=== PATIENT | male | born 1945 | race Caucasian/White ===

== ENCOUNTER 2019-06-01 19:42 | Inpatient (IN) | payer OTHER ==
[~2019-06-01] VITALS: Ht 172.7 cm; Wt 65.9 kg
[2019-06-01 20:06] VITALS: BP 166/60
--- NOTE | 2019-06-01 21:00 | PDOC ---
Exam Note: Gennaro Note: Please also refer to the separate dictated note~for this date of service dictated separately. Discussed the patient with Nursing staff reviewed the chart.~Reviewed interim history and current functioning. Reviewed vital signs,~Labs/ Radiology~and current medications noted below. Continue current treatment with the changes noted in the dictated addendum note Assessment: Vital Signs/I&O: Vital Signs Date Time Temp Pulse Resp B/P (MAP) Pulse Ox O2 Delivery O2 Flow Rate FiO2 06/01/19 20:06 98.4 92 18 166/60 (95) 98 Current Medications: I have reviewed the current psychotropics carefully including drug interactions. Risk benefit ratio favors no change other than as noted in my dictated progress note. EH ISLAS MD Jun 01, 2019 21:00
[2019-06-01] MEDS ORDERED: METHYL SALICYLATE/MENTHOL TOPICAL OINTMENT 57GM TUBE. TP PRN (21:15)
[2019-06-01] MEDS ORDERED: MAG HYDROX/AL HYDROX/SIMETH 30 ML ORAL.SUSP PO PRN (21:15)
[2019-06-01] MEDS ORDERED: ACETAMINOPHEN 325 MG TABLET PO PRN (21:15)
[2019-06-01] MEDS ORDERED: MAGNESIUM HYDROXIDE 2,400 MG/30 ML ORAL.SUSP. PO PRN (21:15)
[2019-06-01 21:53] LABS: BASO # 0.1 x10^3/uL (0.0-0.2); BASO % 1 % (0-3); EOS # 0.4 x10^3/uL (0.0-0.7); EOS % 4 % (0-3); HEMATOCRIT 40.2 % (39.0-53.0); HEMOGLOBIN 13.5 g/dL (13.0-17.5); LYMPH # 3.1 x10^3/uL (1.0-4.8); LYMPH % 31 % (24-48); MEAN CORPUSCULAR HEMOGLOBIN 31 pg (25-35); MEAN CORPUSCULAR HGB CONC 34 g/dL (31-37); MEAN CORPUSCULAR VOLUME 92 fL (79-100); MONO % 10 % (0-9); NEUT # 5.5 x10^3uL (1.8-7.7); NEUT % 55 % (31-73); PLATELET COUNT 299 x10^3/uL (140-400); RED BLOOD COUNT 4.38 x10^6/uL (4.30-5.70); RED CELL DISTRIBUTION WIDTH 14.2 % (11.5-14.5)
[2019-06-01 22:08] LABS: ALBUMIN 2.9 g/dL (3.4-5.0); ALBUMIN/GLOBULIN RATIO 0.8 (1.0-1.7); ALK PHOS 68 U/L (46-116); ALT (SGPT) 15 U/L (16-63); ANION GAP 9 (6-14); AST (SGOT) 9 U/L (15-37); BLOOD UREA NITROGEN 9 mg/dL (8-26); BUN/CREATININE RATIO 11 (6-20); CALCIUM 9.2 mg/dL (8.5-10.1); CARBON DIOXIDE 27 mmol/L (21-32); CHLORIDE 102 mmol/L (98-107); CREATININE 0.8 mg/dL (0.7-1.3); GFR 95.3; GLUCOSE 132 mg/dL (70-99); POTASSIUM 4.1 mmol/L (3.5-5.1); SODIUM 138 mmol/L (136-145); TOTAL BILIRUBIN 0.2 mg/dL (0.2-1.0); TOTAL PROTEIN 6.7 g/dL (6.4-8.2)
[2019-06-01 22:12] LABS: VAL ACID 54 mcg/mL (50-100)
[2019-06-01] MEDS ORDERED: MIDO10TA PO (22:23)
[2019-06-01] MEDS ORDERED: ASPI-630 PO (22:23)
[2019-06-01] MEDS ORDERED: OMEP-229 PO (22:23)
[2019-06-01] MEDS ORDERED: ATOR20TA58 PO (22:23)
[2019-06-01] MEDS ORDERED: CITA10TA4 PO (22:23)
[2019-06-01] MEDS ORDERED: THIA100T57 PO (22:23)
[2019-06-01] MEDS ORDERED: ERGO500027 PO (22:23)
[2019-06-01] MEDS ORDERED: FOLI0.8C PO (22:23)
[2019-06-01] MEDS ORDERED: HYDR-2763 PO (22:23)
[2019-06-01] MEDS ORDERED: ACET500T68 PO (22:23)
[2019-06-01] MEDS ORDERED: DIVA500T17 PO (22:23)
[2019-06-01] MEDS ORDERED: CYAN100031 PO (22:23)
[2019-06-01] MEDS ORDERED: BENZ9GEL3 MM (22:23)
[2019-06-01] MEDS ORDERED: NAPR220C62 PO (22:23)
[2019-06-01] MEDS ORDERED: HYDROcodone/APAP 7.5/325MG 1 TAB TABLET PO PRN (22:30)
[2019-06-01] MEDS ORDERED: PANTOPRAZOLE 40 MG TABLET. PO PRN (22:30)
[2019-06-01] MEDS ORDERED: NAPROXEN 250 MG TABLET PO PRN (22:45)
[2019-06-01] MEDS ORDERED: BENZOCAINE 20% ORAL GEL 11.9GM TUBE. TP PRN (22:45)
--- NOTE | 2019-06-02 05:44 | EKG ---
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
[2019-06-02 05:49] VITALS: BP 123/80
[2019-06-02] MEDS: MIDODRINE 5 MG TABLET PO SCH ×3 (07:00→18:00)
[2019-06-02] MEDS: FOLIC ACID 1 MG TABLET PO SCH (09:40)
[2019-06-02] MEDS: ACETAMINOPHEN 500 MG TABLET PO SCH ×3 (09:40→21:00)
[2019-06-02] MEDS: CYANOCOBALAMIN (VITAMIN B-12) 1,000 MCG TABLET. PO SCH (09:40)
[2019-06-02] MEDS: THIAMINE 100 MG TABLET. PO SCH (09:40)
[2019-06-02] MEDS: CITALOPRAM 10 MG TABLET. PO SCH (09:40)
[2019-06-02] MEDS: ASPIRIN 81 MG TAB.CHEW PO SCH (09:40)
[2019-06-02 14:31] LABS: THYROID STIM HORMONE (TSH) 2.147 uIU/mL (0.358-3.740)
[2019-06-02 15:52] VITALS: BP 147/98
[2019-06-02 18:17] LABS: BACTERIA,URINE FEW /HPF (0-FEW); BILIRUBIN,URINE NEG (NEG); CLARITY,URINE CLOUDY; COLOR,URINE AMBER; GLUCOSE,URINE NEG (NEG); NITRITE,URINE NEG (NEG); SQUAMOUS EPITHELIAL CELL,UR OCC /LPF; UROBILINOGEN,URINE 0.2 mg/dL (0.2 mg/dL); WBC,URINE TNTC /HPF (0-4)
--- NOTE | 2019-06-02 20:34 | CONS ---
DATE OF CONSULTATION: REASON FOR CONSULTATION: Medical management. 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 PAST MEDICAL HISTORY: Significant for hypertension, cerebrovascular accident with left-sided hemiplegia, COPD, gastroesophageal reflux disease, encephalopathy, traumatic brain injury and posttraumatic stress disorder. PAST SURGICAL HISTORY: Significant for PCI with stent deployment, coronary artery bypass graft surgery, exploratory laparotomy and partial resection of the colon for colon cancer. ALLERGIES: HE IS ALLERGIC TO CODEINE, MEPERIDINE, MORPHINE, NICOTINE, OXYCODONE AND PHENOBARBITAL. MEDICATIONS: He is currently on following medications: He is on midodrine 10 mg 3 times a day for chronic postural hypertension, atorvastatin calcium 20 mg at bedtime, aspirin 81 mg once a day, naproxen sodium 220 mg every 12 hours, hydrocodone/APAP 7.5/325 one tablet every 4 hours, Tylenol 500 mg 3 times a day, divalproex sodium 1000 mg at bedtime. He is also on citalopram hydrobromide 10 mg daily, benzocaine oral analgesics 9 grams every 8 hours as needed, cyanocobalamin 1000 mcg p.o. daily, folic acid 800 mcg once a day, thiamine 100 mg once a day and ergocalciferol for vitamin D2 50,000 International Units once a week. FAMILY HISTORY: Unremarkable. SOCIAL HISTORY: He lives alone, has 1 son who lives in [place]. He continued to smoke and drink alcohol. He has a caregiver and lives in his own home, although recently has [facility]. REVIEW OF SYSTEMS: As per history of present illness. PHYSICAL EXAMINATION GENERAL: When I examined him, he was sitting on the edge of the bed comfortably, in no apparent distress. He was pale, but no jaundice, cyanosis or thyromegaly. No jugular venous distention. No limb edema. VITAL SIGNS: His heart rate was 77. His blood pressure was 123/80, temperature was 97.7, respiratory rate was 18 and oxygen saturation was 97% on room air. HEAD, EYES, EARS, NOSE AND THROAT: Showed normocephalic, atraumatic. NECK: Supple. HEART: Normal first and second heart sounds. No gallop or murmur. CHEST: Clear to auscultation. No crepitation or rhonchi. ABDOMEN: Scaphoid, soft, nontender. NEUROLOGIC: He was awake, alert, responding appropriately. All cranial nerves are intact. He has left-sided hemiparesis. He is mostly bed bound, wheelchair bound. LABORATORY DATA: His lab work on admission showed a serum sodium 138, potassium 4.1, chloride 102, bicarbonate 27, anion gap of 9, BUN 9, creatinine 0.8, estimated GFR was 95 mL per minute, his glucose 132, calcium was 9.2, magnesium 2. Serum iron was 52, TIBC was 280, and iron saturation was 19. His total bilirubin, AST, ALT, alkaline phosphatase were normal. Total protein was 6.7, albumin was 2.9. Serum triglyceride was 104, total cholesterol 165, LDL was 113, VLDL was 20, HDL cholesterol 32 and the ratio was 5. His TSH was normal at 2.147. His toxic screen showed his valproic acid was 54 mcg/mL, which is well within therapeutic range. IMPRESSION: In summary, this is a 73-year-old male patient, a resident at [facility], who was admitted on account of refusing medications. He is increasingly delusional, agitated, intrusive, all this in a background of posttraumatic stress disorder, major depressive disorder, alcohol-induced dementia with depression and behavioral disturbances. Medically, the patient has right middle cerebral artery territory infarct with left side hemiplegia, hypertension, chronic obstructive pulmonary disease, gastroesophageal reflux disease, traumatic brain injury. So far, he has also marked postural hypotension for which he is on midodrine and he has multiple falls because of that. However, all his vital signs seem to be stable and all his lab work are within normal range. I will definitely follow all his lab works that are still pending at the time of this dictation to make any necessary recommendation. Thank you, Dr. Cárdenas, for allowing me to participate in the care of this patient. ALBERTO HERNANDEZ MD DR: BENJIE/alessandra JOB#: [id number] / [id number]
--- NOTE | 2019-06-02 20:45 | PDOC ---
Exam Note: Gennaro Note: Please also refer to the separate dictated note~for this date of service dictated separately.~Patient seen individually. Discussed the patient with Nursing staff reviewed the chart.~Reviewed interim history and current functioning. Reviewed vital signs,~Labs/ Radiology~and current medications noted below. Continue current treatment with the changes noted in the dictated addendum note Assessment: Vital Signs/I&O: Vital Signs Date Time Temp Pulse Resp B/P (MAP) Pulse Ox O2 Delivery O2 Flow Rate FiO2 06/02/19 18:00 84 147/98 06/02/19 15:52 97.9 16 99 I & O 06/01/19 06/01/19 06/02/19 15:00 23:00 07:00 Intake Total 240 ml Balance 240 ml Labs: Laboratory Tests Test 06/01/19 21:10 06/01/19 21:45 06/02/19 17:31 White Blood Count 10.0 x10^3/uL (4.0-11.0) Red Blood Count 4.38 x10^6/uL (4.30-5.70) Hemoglobin 13.5 g/dL (13.0-17.5) Hematocrit 40.2 % (39.0-53.0) Mean Corpuscular Volume 92 fL (79-100) Mean Corpuscular Hemoglobin 31 pg (25-35) Mean Corpuscular Hemoglobin Concent 34 g/dL (31-37) Red Cell Distribution Width 14.2 % (11.5-14.5) Platelet Count 299 x10^3/uL (140-400) Neutrophils (%) (Auto) 55 % (31-73) Lymphocytes (%) (Auto) 31 % (24-48) Monocytes (%) (Auto) 10 % (0-9) H Eosinophils (%) (Auto) 4 % (0-3) H Basophils (%) (Auto) 1 % (0-3) Neutrophils # (Auto) 5.5 x10^3uL (1.8-7.7) Lymphocytes # (Auto) 3.1 x10^3/uL (1.0-4.8) Monocytes # (Auto) 1.0 x10^3/uL (0.0-1.1) Eosinophils # (Auto) 0.4 x10^3/uL (0.0-0.7) Basophils # (Auto) 0.1 x10^3/uL (0.0-0.2) Sodium Level 138 mmol/L (136-145) Potassium Level 4.1 mmol/L (3.5-5.1) Chloride Level 102 mmol/L (98-107) Carbon Dioxide Level 27 mmol/L (21-32) Anion Gap 9 (6-14) Blood Urea Nitrogen 9 mg/dL (8-26) Creatinine 0.8 mg/dL (0.7-1.3) Estimated GFR (Cockcroft-Gault) 95.3 BUN/Creatinine Ratio 11 (6-20) Glucose Level 132 mg/dL (70-99) H Calcium Level 9.2 mg/dL (8.5-10.1) Magnesium Level 2.0 mg/dL (1.8-2.4) Total Bilirubin 0.2 mg/dL (0.2-1.0) Aspartate Amino Transferase (AST) 9 U/L (15-37) L Alanine Aminotransferase (ALT) 15 U/L (16-63) L Alkaline Phosphatase 68 U/L (46-116) Total Protein 6.7 g/dL (6.4-8.2) Albumin 2.9 g/dL (3.4-5.0) L Albumin/Globulin Ratio 0.8 (1.0-1.7) L Valproic Acid Level 54 mcg/mL (50-100) Valproic Acid Last Dose Date 06/01/19 Valproic Acid Last Dose Time 0900 Iron Level 52 ug/dL (65-175) L Total Iron Binding Capacity 280 ug/dL (250-450) Iron Saturation 19 % (15-34) Triglycerides Level 104 mg/dL (0-150) Cholesterol Level 165 mg/dL (0-200) LDL Cholesterol, Calculated 113 mg/dL (0-100) H VLDL Cholesterol, Calculated 20 mg/dL (0-40) Non-HDL Cholesterol Calculated 133 mg/dL (0-129) H HDL Cholesterol 32 mg/dL (40-60) L Cholesterol/HDL Ratio 5.0 Vitamin B12 Level 787 pg/mL (247-911) 25-Hydroxy Vitamin D Total 39.5 ng/mL (30-100) Thyroid Stimulating Hormone (TSH) 2.147 uIU/mL (0.358-3.740) Treponema pallidum Antibody Nonreactive (Nonreactive) Urine Collection Type Unknown Urine Color Kami Urine Clarity Cloudy Urine pH 7.0 Urine Specific [place] 1.020 Urine Protein Neg (NEG-TRACE) Urine Glucose (UA) Neg mg/dL (NEG) Urine Ketones (Stick) Neg mg/dL (NEG) Urine Blood Trace (NEG) Urine Nitrite Neg (NEG) Urine Bilirubin Neg (NEG) Urine Urobilinogen Dipstick 0.2 mg/dL (0.2 mg/dL) Urine Leukocyte Esterase Mod (NEG) Urine RBC 1-2 /HPF (0-2) Urine WBC Tntc /HPF (0-4) Urine Squamous Epithelial Cells Occ /LPF Urine Bacteria Few /HPF (0-FEW) Current Medications: I have reviewed the current psychotropics carefully including drug interactions. Risk benefit ratio favors no change other than as noted in my dictated progress note. Diagnosis: Problems: (1) Anxiety disorder (2) Alcohol dependence (3) Bipolar affective, mixed, sev w/ psych (4) Mild cognitive impairment (5) Impulse control disorder EH ISLAS MD Jun 02, 2019 20:45
[2019-06-02] MEDS: DIVALPROEX ER 500 MG TAB.ER.24H PO SCH (20:58)
[2019-06-02] MEDS: ATORVASTATIN CALCIUM 20 MG TABLET PO SCH (21:00)
[2019-06-02 23:07] LABS: THYROXINE 6.2 ug/dL (4.5-12.0)
[2019-06-03] MEDS: MIDODRINE 5 MG TABLET PO SCH ×3 (06:02→18:00)
[2019-06-03 06:12] VITALS: BP 116/80
[2019-06-03] MEDS: FOLIC ACID 1 MG TABLET PO SCH (09:00)
[2019-06-03] MEDS: ACETAMINOPHEN 500 MG TABLET PO SCH ×3 (09:00→20:38)
[2019-06-03] MEDS: ASPIRIN 81 MG TAB.CHEW PO SCH (09:00)
[2019-06-03] MEDS: THIAMINE 100 MG TABLET. PO SCH (09:00)
[2019-06-03] MEDS: CYANOCOBALAMIN (VITAMIN B-12) 1,000 MCG TABLET. PO SCH (09:00)
[2019-06-03] MEDS: CITALOPRAM 10 MG TABLET. PO SCH (09:00)
--- NOTE | 2019-06-03 13:47 | HP ---
ADMIT DATE: 06/02/2019 PSYCHIATRIC ADMISSION HISTORY/EVALUATION This is a late entry, date of service 06/02/2019, and covers the elements not covered in my initial note of 06/02/2019. Date of admission for the patient was 06/01/2019. IDENTIFYING DATA: The patient is a 73-year-old male referred to us from the [facility] by Dr. Juan Francisco Vazquez, his primary care physician on account of refusing medications, increased paranoia, agitation, and being intrusive. The patient reportedly was banging on doors and windows at the nursing facility and convinced that he had to leave the facility to go home. He had failed outpatient psychiatric intervention at the facility and a prior inpatient psychiatric stabilization at the [facility]. He reportedly has a prior diagnosis of PTSD and encephalopathy in addition to alcohol-induced dementia, but the patient totally denies any history of alcohol abuse himself. Behaviors have been dangerous and unmanageable at the facility, resulting in this referral. CHIEF COMPLAINT: "I just wanted to change my power of insurance attorney. I need to go home. I was [place]. I was in [place]. [employer] gave me this [place] cap." HISTORY OF PRESENT ILLNESS: The patient reportedly has a history of mood swings with periods of elation and racing thoughts alternating with the depression and anxiety. Additionally, he has symptoms of PTSD, being hyperalert, over-reactive to stimuli, and having marked mood swings. He is also noted to have an extensive past history of alcohol abuse, which he minimizes and denies. In his records, it is also documented that he has a major neurocognitive disorder secondary to traumatic brain injury and alcohol, all of which he again denies. This admission was facilitated by the [facility]. PAST PSYCHIATRIC HISTORY: As above. PAST MEDICAL HISTORY: Positive for hypertension, status post CVA, COPD, GERD, heart disease, TBI, and PTSD. CODE STATUS: DNR. ALLERGIES: CODEINE, MORPHINE, MEPERIDINE, OXYCODONE, and PHENOBARBITAL. DIET: Regular. ACCU-CHEKS: None. AMBULATES: Wheelchair, though he can transfer. UA is awaited. CURRENT PSYCHOTROPICS: Celexa 10 mg a day, Depakote ER 500 mg daily, valproic acid level on 06/02/2019 is 54. FAMILY HISTORY: Noncontributory. SOCIAL HISTORY: No physical, sexual, or elder abuse history is noted. Not known to be a perpetrator. REACTION TO HOSPITALIZATION: The patient reluctantly is accepting of this. ASSETS: [facility] and by his power of insurance attorney, who are Camilo and Mary. MENTAL STATUS EXAMINATION: The patient was seen individually evening of 06/02/2019 in his room extensively. He is oriented to place and situation and knew he was admitted the day before. He is quite animated, hyperverbal at times, and somewhat paranoid, but denied suicidal or homicidal ideation. Attention span is short. Language function intact. He was able to do two steps on serial 7's and knew that the current president was president Khloe. He does have some short-term memory deficits. IMPRESSION: Bipolar disorder, mixed with psychotic features, anxiety disorder, unspecified, mild cognitive impairment versus major neurocognitive disorder, multifactorial, vascular, secondary to alcohol with the delusion, depression, and behavioral disturbance. Rest unchanged as above. PLAN: Admit to geropsychiatry unit at [facility]. I will see the patient daily individually from a psychiatric standpoint. Medical followup per Dr. Weeks. Continue patient on his current psychotropics and observe baseline and then adjust as clinically indicated. Dr. Smith will cover for me during my absence over the next few days. Estimated length of stay 10-12 days. DISPOSITION: Plans back to half-way when stable. MAN Richard ISLAS MD DR: BARRERA/alessandra JOB#: [id number] / [id number]
[2019-06-03 15:53] VITALS: BP 147/80
[2019-06-03] MEDS: DIVALPROEX ER 500 MG TAB.ER.24H PO SCH (20:33)
[2019-06-03] MEDS: ATORVASTATIN CALCIUM 20 MG TABLET PO SCH (20:38)
--- NOTE | 2019-06-04 00:06 | PN ---
DATE: 06/03/2019 SUBJECTIVE: The patient was seen today, met with the staff, and chart reviewed. Also, covering for Dr. Cárdenas. The patient apparently having problems, being delusional, paranoid and also threatening at times, but the patient during the assessment today did not present with any major behavior problems and was pleasant. He was talked about his service being at [employer] and apparently, he had combat injuries. The patient states he is getting help through the [facility]. The patient still has problems with hand tremors. The patient also admits to feeling depressed at times. The patient admits to feeling sad because he lost his 3 years ago. The patient has minimal support system. He has a son. Apparently, he has no contact with him. The patient was also seen by Dr. Espinoza for tremors. OBSERVATION: VITAL SIGNS: Temperature 97.6, blood pressure 116/80, pulse 86, respirations 20, O2 sat 97%. Slept about 7 hours last night. His appetite is fair. LABORATORY DATA: The patient's lab reviewed. MEDICATIONS: The patient's current medications include Depakote 1000 mg at night. Citalopram 10 mg souza po. The patient's Depakote level was 54. The patient is not having any side effects to the medications. ASSESSMENT: Bipolar disorder, mixed, with psychotic features, mild cognitive impairment. PLAN: To continue with the treatment. LENGTH OF STAY: 4-5 days. JAKE DICKEY MD DR: CRISTIN/alessandra JOB#: [id number] / [id number] BRANDIE
[2019-06-04] MEDS: MIDODRINE 5 MG TABLET PO SCH ×3 (05:26→18:00)
[2019-06-04 06:12] VITALS: BP 110/71
[2019-06-04] MEDS: ACETAMINOPHEN 500 MG TABLET PO SCH ×3 (09:00→21:00)
[2019-06-04] MEDS: FOLIC ACID 1 MG TABLET PO SCH (09:00)
[2019-06-04] MEDS: CITALOPRAM 10 MG TABLET. PO SCH (09:00)
[2019-06-04] MEDS: CYANOCOBALAMIN (VITAMIN B-12) 1,000 MCG TABLET. PO SCH (09:00)
[2019-06-04] MEDS: ASPIRIN 81 MG TAB.CHEW PO SCH (09:00)
[2019-06-04] MEDS: THIAMINE 100 MG TABLET. PO SCH (09:00)
[2019-06-04 16:28] VITALS: BP 130/84
[2019-06-04] MEDS: DIVALPROEX ER 500 MG TAB.ER.24H PO SCH (20:39)
--- NOTE | 2019-06-04 20:52 | PN ---
DATE: 06/04/2019 SUBJECTIVE: The patient was seen today, met with the staff, chart reviewed. The patient's behavior fluctuates. Staff reports he has been refusing the medications at times. Overall, he is pleasant, tends to isolate himself. The patient is not having any physical complaints today. OBSERVATION: VITAL SIGNS: Temperature 97.6, blood pressure 110/71, pulse 79, respiration 18, O2 sat 96%. GENERAL: Slept about 6 hours last night. LABORATORY DATA: The patient's lab reviewed. MEDICATIONS: The patient's current medications include Depakote 1000 mg at night and also Celexa 10 mg daily. The patient denies of any side effects. ASSESSMENT: Bipolar disorder, mixed with psychotic features; mild cognitive disorder. PLAN: To continue with the treatment. LENGTH OF STAY: 4-5 days. JAKE DICKEY MD DR: CRISTIN/alessandra JOB#: [id number] / [id number]
[2019-06-04] MEDS: ATORVASTATIN CALCIUM 20 MG TABLET PO SCH (21:00)
[2019-06-04] MEDS: LACTOBACILLUS RHAMNOSUS GG 1 CAPSULE. PO SCH (22:48)
[2019-06-04] MEDS: AMOXICILLIN 250 MG CAPSULE PO SCH (22:49)
[2019-06-05] MEDS: MIDODRINE 5 MG TABLET PO SCH ×3 (07:00→18:00)
[2019-06-05 07:25] VITALS: BP 129/79
[2019-06-05] MEDS: FOLIC ACID 1 MG TABLET PO SCH (09:34)
[2019-06-05] MEDS: LACTOBACILLUS RHAMNOSUS GG 1 CAPSULE. PO SCH ×2 (09:34→20:44)
[2019-06-05] MEDS: ASPIRIN 81 MG TAB.CHEW PO SCH (09:34)
[2019-06-05] MEDS: ACETAMINOPHEN 500 MG TABLET PO SCH ×3 (09:35→20:47)
[2019-06-05] MEDS: CYANOCOBALAMIN (VITAMIN B-12) 1,000 MCG TABLET. PO SCH (09:35)
[2019-06-05] MEDS: CITALOPRAM 10 MG TABLET. PO SCH (09:35)
[2019-06-05] MEDS: THIAMINE 100 MG TABLET. PO SCH (09:35)
[2019-06-05] MEDS: AMOXICILLIN 250 MG CAPSULE PO SCH ×3 (09:35→20:44)
[2019-06-05 16:29] VITALS: BP 121/81
[2019-06-05] MEDS: DIVALPROEX ER 500 MG TAB.ER.24H PO SCH (20:44)
[2019-06-05] MEDS: ATORVASTATIN CALCIUM 20 MG TABLET PO SCH (20:47)
--- NOTE | 2019-06-06 00:47 | PN ---
DATE: 06/05/2019 SUBJECTIVE: The patient was seen today, met with the staff, chart reviewed. The patient's behavior has improved, pleasant, currently on wheelchair. The patient has not shown any major behavior problems. The patient still tends to isolate himself. OBSERVATION: VITAL SIGNS: Temperature 97.8, blood pressure 129/79, pulse 80, respirations 16, O2 sat 99%. GENERAL: Slept about 7 hours last night. The patient's appetite is fair. The patient is not having any side effects with medications. LABORATORY DATA: The patient's lab reviewed. MEDICATIONS: The patient is currently on Depakote 1000 mg at night and Celexa 10 mg daily. ASSESSMENT: 1. Bipolar disorder, mixed, with psychotic features. 2. Mild cognitive disorder. PLAN: To continue with the treatment. LENGTH OF STAY: 4-5 days. JAKE DICKEY MD DR: CRISTIN/alessandra JOB#: [id number] / [id number]
[2019-06-06 06:46] VITALS: BP 100/68
[2019-06-06 08:19] VITALS: BP 113/69
[2019-06-06] MEDS: CITALOPRAM 10 MG TABLET. PO SCH (08:21)
[2019-06-06] MEDS: AMOXICILLIN 250 MG CAPSULE PO SCH ×3 (08:21→19:40)
[2019-06-06] MEDS: CYANOCOBALAMIN (VITAMIN B-12) 1,000 MCG TABLET. PO SCH (08:30)
[2019-06-06] MEDS: ASPIRIN 81 MG TAB.CHEW PO SCH (08:30)
[2019-06-06] MEDS: FOLIC ACID 1 MG TABLET PO SCH (08:30)
[2019-06-06] MEDS: ACETAMINOPHEN 500 MG TABLET PO SCH ×3 (08:30→20:52)
[2019-06-06] MEDS: LACTOBACILLUS RHAMNOSUS GG 1 CAPSULE. PO SCH ×2 (08:30→19:40)
[2019-06-06] MEDS: MIDODRINE 5 MG TABLET PO SCH ×3 (08:30→16:57)
[2019-06-06] MEDS: THIAMINE 100 MG TABLET. PO SCH (08:30)
[2019-06-06 09:33] LABS: BASO # 0.1 x10^3/uL (0.0-0.2); BASO % 2 % (0-3); EOS # 0.2 x10^3/uL (0.0-0.7); EOS % 4 % (0-3); HEMATOCRIT 39.1 % (39.0-53.0); HEMOGLOBIN 13.2 g/dL (13.0-17.5); LYMPH # 1.8 x10^3/uL (1.0-4.8); LYMPH % 33 % (24-48); MEAN CORPUSCULAR HEMOGLOBIN 31 pg (25-35); MEAN CORPUSCULAR HGB CONC 34 g/dL (31-37); MEAN CORPUSCULAR VOLUME 91 fL (79-100); MONO # 0.5 x10^3/uL (0.0-1.1); MONO % 9 % (0-9); NEUT # 2.9 x10^3uL (1.8-7.7); NEUT % 53 % (31-73); PLATELET COUNT 227 x10^3/uL (140-400); RED BLOOD COUNT 4.28 x10^6/uL (4.30-5.70); RED CELL DISTRIBUTION WIDTH 14.2 % (11.5-14.5); WHITE BLOOD COUNT 5.5 x10^3/uL (4.0-11.0)
[2019-06-06 09:41] LABS: ALBUMIN/GLOBULIN RATIO 0.8 (1.0-1.7); CALCIUM 9.1 mg/dL (8.5-10.1); GFR 73.7; POTASSIUM 4.6 mmol/L (3.5-5.1); TOTAL BILIRUBIN 0.4 mg/dL (0.2-1.0); TOTAL PROTEIN 6.7 g/dL (6.4-8.2)
[2019-06-06 16:02] VITALS: BP 113/72
[2019-06-06] MEDS: DIVALPROEX ER 500 MG TAB.ER.24H PO SCH (19:40)
[2019-06-06] MEDS: ATORVASTATIN CALCIUM 20 MG TABLET PO SCH (20:52)
--- NOTE | 2019-06-07 02:53 | PN ---
DATE: 06/06/2019 SUBJECTIVE: The patient was seen today, met with the staff, chart reviewed. The patient's behavior fluctuates, confused and also manic-like behavior at times. The patient tends to minimize his problems as a result his alcoholism. OBSERVATION: VITAL SIGNS: Temperature 97.7, blood pressure 113/72, pulse 87, respirations 16, O2 sat 95%. The patient slept about 7 hours last night. The patient's appetite is good. LABORATORY DATA: The patient's lab reviewed. MEDICATIONS: The patient's current medications include Depakote 1000 mg at night and Celexa 10 mg daily. The patient is not having any side effects. ASSESSMENT: 1. Bipolar disorder, mixed with psychotic features. 2. Mild cognitive disorder. PLAN: To continue with the treatment. LENGTH OF STAY: 4-5 days. JAKE DICKEY MD DR: CRISTIN/alessandra JOB#: [id number] / [id number]
[2019-06-07 06:34] VITALS: BP 124/75
[2019-06-07] MEDS: MIDODRINE 5 MG TABLET PO SCH ×3 (06:52→15:57)
[2019-06-07] MEDS: AMOXICILLIN 250 MG CAPSULE PO SCH ×3 (08:21→19:30)
[2019-06-07] MEDS: CITALOPRAM 10 MG TABLET. PO SCH (08:21)
[2019-06-07] MEDS: CYANOCOBALAMIN (VITAMIN B-12) 1,000 MCG TABLET. PO SCH (09:00)
[2019-06-07] MEDS: FOLIC ACID 1 MG TABLET PO SCH (09:00)
[2019-06-07] MEDS: ASPIRIN 81 MG TAB.CHEW PO SCH (09:00)
[2019-06-07] MEDS: LACTOBACILLUS RHAMNOSUS GG 1 CAPSULE. PO SCH ×2 (09:00→19:30)
[2019-06-07] MEDS: ACETAMINOPHEN 500 MG TABLET PO SCH ×3 (09:00→19:31)
[2019-06-07] MEDS: THIAMINE 100 MG TABLET. PO SCH (09:00)
[2019-06-07 15:39] VITALS: BP 133/84
[2019-06-07] MEDS: DIVALPROEX ER 500 MG TAB.ER.24H PO SCH (19:30)
--- NOTE | 2019-06-07 23:18 | PN ---
DATE: 06/07/2019 SUBJECTIVE: The patient was seen today, met with the staff, chart reviewed. Staff reports continued behavior problems, increased agitation, mood swings, manic behaviors and also not in touch with his feelings, lacking insight to his problems. OBSERVATION: VITAL SIGNS: Temperature 97.7, blood pressure 113/72, pulse 87, respirations 16, O2 sat 95%. The patient's appetite improved. LABORATORY DATA: The patient's lab reviewed. MEDICATIONS: The patient's current medications include Depakote 100 mg at night, and Celexa 10 mg daily. The patient denies of any side effects. ASSESSMENT: 1. Bipolar disorder, mixed, with psychotic features. 2. Mild cognitive disorder. PLAN: To continue with the treatment. LENGTH OF STAY: 5 days. JAKE DICKEY MD DR: CRISTIN/alessandra JOB#: [id number] / [id number]
[2019-06-08] MEDS: MIDODRINE 5 MG TABLET PO SCH ×3 (05:39→16:35)
[2019-06-08 06:05] VITALS: BP 120/80
[2019-06-08] MEDS: AMOXICILLIN 250 MG CAPSULE PO SCH ×3 (08:28→20:34)
[2019-06-08] MEDS: CITALOPRAM 10 MG TABLET. PO SCH (08:28)
[2019-06-08] MEDS: ACETAMINOPHEN 500 MG TABLET PO SCH ×3 (09:00→20:37)
[2019-06-08] MEDS: ASPIRIN 81 MG TAB.CHEW PO SCH (09:00)
[2019-06-08] MEDS: LACTOBACILLUS RHAMNOSUS GG 1 CAPSULE. PO SCH ×2 (09:00→20:34)
[2019-06-08] MEDS ORDERED: CHOLECALCIFEROL (VITAMIN D3) 50,000 UNIT CAPSULE PO SCH (09:00)
[2019-06-08 15:45] VITALS: BP 101/67
[2019-06-08 19:30] LABS: CALCIUM 8.7 mg/dL (8.5-10.1); CREATININE 0.8 mg/dL (0.7-1.3); GFR 95.3; POTASSIUM 4.3 mmol/L (3.5-5.1)
[2019-06-08] MEDS: DIVALPROEX ER 500 MG TAB.ER.24H PO SCH (20:34)
--- NOTE | 2019-06-09 01:30 | PN ---
DATE: 06/08/2019 SUBJECTIVE: The patient was seen today, met with the staff, chart reviewed. The patient's behavior remains the same. Significant mood swings, periods of grandiose ideation and also agitation. The patient tends to be verbally aggressive at times. The patient continues to show significant mood swings. OBSERVATION: VITAL SIGNS: Temperature 97.4, blood pressure 120/80, pulse 65, respirations 18, O2 sat 97%. Slept about 6-1/2 hours last night. The patient's appetite is fair. The patient is able to hold a conversation and tend to show a pressure of speech and increased rate and rhythm. ASSESSMENT: 1. Bipolar disorder, mixed, with psychotic features. 2. Mild cognitive disorder. PLAN: To continue with the treatment. LENGTH OF STAY: 5-7 days. JAKE DICKEY MD DR: CRISTIN/alessandra JOB#: [id number] / [id number]
[2019-06-09 06:21] VITALS: BP 119/76
[2019-06-09] MEDS: MIDODRINE 5 MG TABLET PO SCH ×4 (08:07→19:26)
[2019-06-09] MEDS: ACETAMINOPHEN 500 MG TABLET PO SCH ×3 (08:07→20:45)
[2019-06-09] MEDS: ASPIRIN 81 MG TAB.CHEW PO SCH (08:07)
[2019-06-09] MEDS: CITALOPRAM 10 MG TABLET. PO SCH (08:52)
[2019-06-09] MEDS: LACTOBACILLUS RHAMNOSUS GG 1 CAPSULE. PO SCH ×2 (08:52→19:26)
[2019-06-09] MEDS: AMOXICILLIN 250 MG CAPSULE PO SCH ×3 (08:53→19:26)
[2019-06-09 16:09] VITALS: BP 107/67
[2019-06-09] MEDS: DIVALPROEX ER 500 MG TAB.ER.24H PO SCH (19:26)
[2019-06-09 19:28] VITALS: BP 143/82
--- NOTE | 2019-06-10 01:15 | PN ---
DATE: 06/09/2019 SUBJECTIVE: The patient was seen today, met with the staff, chart reviewed. The patient's behavior remains the same, continues to exhibit mood swings, manic-like behaviors at times and not exhibiting any overt psychotic symptoms. OBSERVATION: VITAL SIGNS: Temperature 97.7, blood pressure 119/76, pulse 80, respirations 16, O2 sat 97%. Slept about 5 hours last night. The patient's appetite is fair. LABORATORY DATA: The patient's lab reviewed. MEDICATIONS: The patient's current medications include Depakote 1000 mg at night, Celexa 10 mg daily. ASSESSMENT: 1. Bipolar disorder, mixed, with psychotic features. 2. Mild cognitive disorder. PLAN: To continue with the treatment. JAKE DICKEY MD DR: CRISTIN/alessandra JOB#: [id number] / [id number]
[2019-06-10 06:17] VITALS: BP 120/70
[2019-06-10] MEDS: CITALOPRAM 10 MG TABLET. PO SCH (09:06)
[2019-06-10] MEDS: AMOXICILLIN 250 MG CAPSULE PO SCH ×4 (09:06→20:18)
[2019-06-10] MEDS: LACTOBACILLUS RHAMNOSUS GG 1 CAPSULE. PO SCH ×2 (09:06→20:18)
[2019-06-10] MEDS: ASPIRIN 81 MG TAB.CHEW PO SCH (09:07)
[2019-06-10] MEDS: ACETAMINOPHEN 500 MG TABLET PO SCH ×2 (09:08→13:32)
[2019-06-10] MEDS: MIDODRINE 5 MG TABLET PO SCH ×2 (13:08→17:04)
[2019-06-10 16:59] VITALS: BP 136/77
[2019-06-10] MEDS: DIVALPROEX ER 500 MG TAB.ER.24H PO SCH (20:17)
--- NOTE | 2019-06-11 | PN ---
DATE: 06/10/2019 SUBJECTIVE: The patient was seen today, met with the staff, chart reviewed. The patient continues to exhibit increased psychomotor activity, social withdrawal and also inappropriate affect at times, but no overt psychotic symptoms. OBJECTIVE: VITAL SIGNS: Temperature 98.2, blood pressure 129/70, pulse 62, respiration 18, O2 sat 96%. GENERAL: Slept about 9 hours last night. The patient's appetite improved. LABORATORY DATA: The patient's lab reviewed. MEDICATIONS: The patient's current medications include Depakote 1000 mg at night, Celexa 10 mg daily. ASSESSMENT: 1. Bipolar disorder, mixed, with psychotic features. 2. Mild cognitive disorder. PLAN: To continue with the treatment. LENGTH OF STAY: 4-5 days. JAKE DICKEY MD DR: CRISTIN/alessandra JOB#: [id number] / [id number]
[2019-06-11] MEDS: MIDODRINE 5 MG TABLET PO SCH ×3 (05:55→18:27)
[2019-06-11 06:03] VITALS: BP 135/75
[2019-06-11] MEDS: LACTOBACILLUS RHAMNOSUS GG 1 CAPSULE. PO SCH ×2 (08:54→20:22)
[2019-06-11] MEDS: CITALOPRAM 10 MG TABLET. PO SCH (08:54)
[2019-06-11] MEDS: AMOXICILLIN 250 MG CAPSULE PO SCH ×3 (08:54→20:21)
[2019-06-11] MEDS: ASPIRIN 81 MG TAB.CHEW PO SCH (08:54)
[2019-06-11 16:01] VITALS: BP 124/78
[2019-06-11] MEDS: DIVALPROEX ER 500 MG TAB.ER.24H PO SCH (20:21)
--- NOTE | 2019-06-11 23:43 | DS ---
DATE OF DISCHARGE: 06/11/2019 FINAL DIAGNOSES: AXIS I: 1. Bipolar disorder, mixed, with psychotic features. 2. Anxiety disorder, unspecified. 3. Mild cognitive impairment versus major neurocognitive disorder. 4. Alcohol amnestic disorder. AXIS II: None. AXIS III: Hypertension, status post cerebrovascular accident, chronic obstructive pulmonary disease, gastroesophageal reflux disease, cardiovascular disease, TBI and PTSD. REASON FOR ADMISSION: This 73-year-old male was admitted from [facility] because of refusing medications, increased paranoia, agitation and being intrusive. The patient was also banging on doors and windows of the nursing facility and convinced that he had to leave the facility to go home. The patient apparently failed outpatient interventions at the facility and also had inpatient psychiatric stabilization at the [facility]. The patient also reported that he has a diagnosis of PTSD, encephalopathy and alcohol-induced dementia. HOSPITAL COURSE: The patient had a physical exam, routine lab work including CBC, chem profile, urinalysis. Most of the lab work is within normal range except for hemoglobin A1c. Blood sugar fluctuated from 104-160. The patient's iron was 52. The patient also had abnormal lipid profile. The patient was involved in the program including individual therapy, group therapy, activity therapy. The patient continued on his medications and made some changes that included vitamin D 50,000 units, amoxicillin 500 mg t.i.d. p.o. During the stay here, Depakote 1000 mg at night, Celexa 10 mg daily, aspirin 81 mg daily, ProAmatine 10 mg t.i.d., Protonix 40 mg daily p.r.n. He was also on naproxen 25 mg q. 12 hours p.r.n. Patient's vital signs stayed stable. The patient was able to sleep like 8-9 hours at night. The patient did not present with any major problems. His appetite improved. The patient did not have any side effects to the medications. The patient's Depakote level was 54. AFTERCARE PLAN: The patient at the time of discharge was medically stable, he was not depressed, not having any negative thoughts. Still has some cognitive impairment. The patient will be returning to [facility] in [place] and continue follow up with the psychiatrist there and continue with the medication listed above. JAKE DICKEY MD DR: Scottie JOB#: [id number] / [id number] BRANDIE
[2019-06-11] MEDS ORDERED: ACET325T9 PO (23:48)
[2019-06-11] MEDS ORDERED: CHOL500021 PO (23:48)
[2019-06-11] MEDS ORDERED: LACT1CAP21 PO (23:52)
[2019-06-11] MEDS ORDERED: MAGN30OR PO (23:58)
[2019-06-11] MEDS ORDERED: MAGN2400 PO (23:59)
[2019-06-12] MEDS ORDERED: METH28OI2 TP
[2019-06-12] MEDS ORDERED: NAPR-683 PO (00:01)
[2019-06-12] MEDS: MIDODRINE 5 MG TABLET PO SCH ×2 (05:17→11:27)
[2019-06-12 06:08] VITALS: BP 118/75
[2019-06-12] MEDS: CITALOPRAM 10 MG TABLET. PO SCH (08:44)
[2019-06-12] MEDS: ASPIRIN 81 MG TAB.CHEW PO SCH (08:44)
[2019-06-12] MEDS: LACTOBACILLUS RHAMNOSUS GG 1 CAPSULE. PO SCH (08:44)
[2019-06-12 11:27] VITALS: BP 118/75
== END 2019-06-12 13:55 | disposition short-term general hospital (02) | DRG 885 ==
LOC: GEROPSY 19:42
PROVIDERS: ADMIT Psychiatry & Neurology Psychiatry; ATTEND Psychiatry & Neurology Psychiatry
DX: F31.64 Bipolar disorder, current episode mixed, severe, with psychotic features (principal); F10.27 Alcohol dependence with alcohol-induced persisting dementia; I69.354 Hemiplegia and hemiparesis following cerebral infarction affecting left non-dominant side; F43.10 Post-traumatic stress disorder, unspecified; Z79.899 Other long term (current) drug therapy; Z66 Do not resuscitate; Z79.82 Long term (current) use of aspirin; Z85.038 Personal history of other malignant neoplasm of large intestine; Z95.1 Presence of aortocoronary bypass graft; Z95.5 Presence of coronary angioplasty implant and graft; K21.9 Gastro-esophageal reflux disease without esophagitis; I10 Essential (primary) hypertension; Z88.8 Allergy status to other drugs, medicaments and biological substances; J44.9 Chronic obstructive pulmonary disease, unspecified; F02.80 Dementia in other diseases classified elsewhere, unspecified severity, without behavioral disturbance, psychotic disturbance, mood disturbance, and anxiety; F63.9 Impulse disorder, unspecified; I95.1 Orthostatic hypotension
CPT/HCPCS: 36415; 80048; 80053; 80061; 80164; 81001; 82306; 82607; 83036; 83540; 83550; 83735; 84436; 84443; 84480; 85025; 86592; 87086; 87186; 93005; 99407